=== PATIENT | female | born 1965 | race Caucasian/White ===

== ENCOUNTER 2016-12-11 16:40 | Emergency (ER) | payer OTHER ==
[2016-12-11 17:21] VITALS: BP 104/80
--- NOTE | 2016-12-11 19:51 | UC ---
Complaint Female HPI - HPI Summary HPI Summary: ONE WEEK OF URINARY FREQUENCY DISCOMFORT NO FEVER NO ABDOMINAL PAIN - History Of Current Complaint Chief Complaint: UCGU Stated Complaint: URINARY Time Seen by Provider: 12/11/16 18:25 Hx Obtained From: Patient Hx Last Menstrual Period: Mirana-hyperplasia Onset/Duration: Gradual Onset, Lasting Days, Still Present Timing: Lasting Days Severity Initially: Mild Severity Currently: Mild Pain Intensity: 2 Pain Scale Used: 0-10 Numeric Character: Dull Aggravating Factor(s): Urination Associated Signs And Symptoms: Negative: Fever, Back Pain, Vaginal Bleeding/ Discharge, Vaginal Discharge, Nausea, Vomiting(# Of Episodes =) - Risk Factors Ectopic Risk Factor: Negative Ovarian Torsion Risk Factor: Negative - Allergies/Home Medications Allergies/Adverse Reactions: Allergies Allergy/AdvReac Type Severity Reaction Status Date / Time Clavulanic Acid Allergy Itching Verified 12/11/16 17:16 [From Augmentin] Ibuprofen Allergy Hives Verified 12/11/16 17:16 Ketorolac Tromethamine Allergy Hives Verified 12/11/16 17:16 [From Toradol] NSAIDs Allergy Hives Verified 12/11/16 17:16 Oxycodone Allergy Itching Verified 12/11/16 17:16 Home Medications: Home Medications Carbidopa/Levodop 25/100 MG(*) [Sinemet 25/100 TAB(*)] 1 tab PO TID PRN [History Confirmed 12/11/16] PMH/Surg Hx/FS Hx/Imm Hx Previously Healthy: Yes Endocrine History Of: Reports: Thyroid Disease - thyroid nodule Denies: Diabetes Cardiovascular History Of: Denies: Cardiac Disorders, Hypertension Respiratory History Of: Denies: COPD, Asthma GI/ History Of: Denies: Ulcer - Surgical History Surgical History: None - Family History Known Family History: Positive: None - no history of asthma or respiratory illness., Other - metastatic bladder cancer- father Negative: Respiratory Disease - no history of asthma or respiratory illness. - Social History Occupation: Employed Full-time Lives: With Family Alcohol Use: Rare Substance Use Type: Prescribed Smoking Status (MU): Never Smoked Tobacco Have You Smoked in the Last Year: No Review of Systems Constitutional: Negative Skin: Negative Eyes: Negative ENT: Negative Respiratory: Negative Cardiovascular: Negative Gastrointestinal: Negative Genitourinary: Dysuria, Frequency, Urgency Motor: Negative Neurovascular: Negative Musculoskeletal: Negative Neurological: Negative Psychological: Negative All Other Systems Reviewed And Are Negative: Yes Physical Exam Triage Information Reviewed: Yes Appearance: Well-Appearing, No Pain Distress, Well-Nourished Vital Signs: Initial Vital Signs Pulse 74 12/11/16 17:12 Resp 18 12/11/16 17:12 BP 104/80 12/11/16 17:12 Pulse Ox 99 12/11/16 17:12 Vital Signs Reviewed: Yes Eye Exam: Normal ENT Exam: Normal ENT: Positive: Normal ENT inspection, Hearing grossly normal, Pharynx normal, TMs normal Dental Exam: Normal Neck exam: Normal Neck: Positive: Supple, Nontender Respiratory Exam: Normal Respiratory: Positive: Chest non-tender, Lungs clear, Normal breath sounds, No respiratory distress Cardiovascular Exam: Normal Cardiovascular: Positive: RRR, No Murmur, Pulses Normal Abdominal Exam: Normal Abdomen Description: Positive: Nontender, No Organomegaly, Soft, CVA Tenderness (R) Musculoskeletal Exam: Normal Musculoskeletal: Positive: Strength Intact, ROM Intact Neurological Exam: Normal Psychological Exam: Normal Skin Exam: Normal Complaint Female Dx - Differential Dx/Diagnosis Differential Diagnosis/HQI/PQRI: Renal Colic, Ureteral Stone, Urinary Tract Infection Provider Diagnoses: URINARY TRACT INFECTION Discharge - Discharge Plan Condition: Stable Disposition: HOME Prescriptions: Phenazopyridine TAB* [Pyridium 100 mg TAB*] 100 mg PO TID #15 tab Sulfamethox/Trimethoprim DS* [Bactrim DS 800/160 TAB*] 1 tab PO BID #10 tab Patient Education Materials: Urinary Tract Infection in Women (ED) Referrals: Ankit Philip MD [Primary Care Provider] -
== END 2016-12-11 18:41 | disposition home or self-care (01) ==
LOC: UCCORT 16:40
DX: N39.0 Urinary tract infection, site not specified (principal); E04.1 Nontoxic single thyroid nodule; Z88.6 Allergy status to analgesic agent; Z88.1 Allergy status to other antibiotic agents; Z88.5 Allergy status to narcotic agent
CPT/HCPCS: 81003; 87086; 99212; G0463

== ENCOUNTER 2017-05-25 08:31 | Emergency (ER) | payer OTHER ==
[2017-05-25 08:38] VITALS: BP 132/79
--- NOTE | 2017-05-25 08:43 | UC ---
Throat Pain/Nasal Jori HPI - HPI Summary HPI Summary: Pt presents with 10 days congestion, cough and sinus pressure. Pt states was feeling better, but coworker came to work sick and she got sick again. + chills and tactile fever. No chest pain. Pt taking sudafed and mucinex with temp improvement. + green sputum No antipyretic. PT states saw PCP on Sat - was told to be rechecked if not improving - pt states still feels "awful" so came for eval. Pt states feels getting worse so came for eval. Pt not immunocompromised Pt's medications reviewed this visit. - History of Current Complaint Chief Complaint: UCGeneralIllness Stated Complaint: HEAD CONGESTION Time Seen by Provider: 05/25/17 08:39 Hx Obtained From: Patient Hx Last Menstrual Period: iud ?: No Severity: Moderate Cough: Productive - yellow Associated Signs & Symptoms: Positive: Wheezing, Sinus Discomfort - Allergies/Home Medications Allergies/Adverse Reactions: Allergies Allergy/AdvReac Type Severity Reaction Status Date / Time Clavulanic Acid Allergy Itching Verified 05/25/17 08:39 [From Augmentin] Ibuprofen Allergy Hives Verified 05/25/17 08:39 Ketorolac Tromethamine Allergy Hives Verified 05/25/17 08:39 [From Toradol] NSAIDs Allergy Hives Verified 05/25/17 08:39 Oxycodone Allergy Itching Verified 05/25/17 08:39 PMH/Surg Hx/FS Hx/Imm Hx Previously Healthy: Yes - Surgical History Surgical History: None - Family History Known Family History: Positive: None - no history of asthma or respiratory illness., Other - metastatic bladder cancer- father Negative: Respiratory Disease - no history of asthma or respiratory illness. - Social History Occupation: Employed Full-time Lives: With Family Alcohol Use: Rare Substance Use Type: Prescribed Smoking Status (MU): Never Smoked Tobacco Have You Smoked in the Last Year: No Review of Systems Constitutional: Fever, Chills ENT: Nasal Discharge, Sinus Congestion, Sinus Pain/Tenderness Respiratory: Cough Cardiovascular: Negative Gastrointestinal: Negative All Other Systems Reviewed And Are Negative: Yes Physical Exam Triage Information Reviewed: Yes Appearance: Well-Appearing, Well-Nourished, Other: - congested, nasal Vital Signs: Initial Vital Signs Temp 98.4 F 05/25/17 08:33 Pulse 105 05/25/17 08:33 Resp 20 05/25/17 08:33 BP 132/79 05/25/17 08:33 Pulse Ox 100 05/25/17 08:33 Eye Exam: Normal Eyes: Positive: Conjunctiva Clear ENT Exam: Normal ENT: Positive: Normal ENT inspection, Hearing grossly normal, Pharynx normal Dental Exam: Normal Neck exam: Normal Neck: Positive: Supple, Nontender, No Lymphadenopathy Respiratory Exam: Normal Respiratory: Positive: Rhonchi, Wheezing - left side mid, lower lung zone with congestion, wheeze coarse cough + BS throughout Cardiovascular Exam: Normal Cardiovascular: Positive: RRR, No Murmur, Pulses Normal Abdominal Exam: Normal Abdomen Description: Positive: Nontender, No Organomegaly, Soft Bowel Sounds: Positive: Present Musculoskeletal Exam: Normal Neurological Exam: Normal Psychological Exam: Normal Skin Exam: Normal Diagnostics - Radiology No standard instances Radiology Interpretation Completed By: Radiologist - NAD Re-Evaluation - Re-Evaluation First Eval Change: Improved - pt improved with neb cough decreased cxr neg Will give z pack, MDI, resume flonase secretion precaution pt comfortable with plan Throat Pain/Nasal Course/Dx - Course Course Of Treatment: PT with progressive nasal congestion and cough. PT with left lung rhonci and wheeze. will check cxr. neb. reassess - Differential Dx/Diagnosis Provider Diagnoses: bronchitis. sinusitis Discharge - Discharge Plan Condition: Stable Disposition: HOME Prescriptions: Albuterol HFA INHALER* [Ventolin HFA Inhaler*] 1 puff INH Q4H PRN #1 mdi PRN Reason: Cough Azithromycin TAB* [Zithromax TAB (Z-IMER) 250 mg #6 tabs] 2 tab PO .TODAY, THEN 1 DAILY #1 imer Patient Education Materials: Sinusitis (ED), Acute Bronchitis (ED) Referrals: Mitchell Milton MD [Primary Care Provider] - Additional Instructions: - Stay well hydrated. Drink plenty of non-alcoholic, non-caffinated beverages - Take antibiotics exactly as prescribed until gone -Use your albuterol puffer - 2 puffs every 4 hours today, then every 4 hours as needed - Okay to use over the counter decongestant and cough medication - resume your flonase - eat regular, healthy meals -These infections are spread by oral secretions. Do not share eating or drinking utensils. Frequent hand washing is important. Clean items that may get your secretions on them such as cell phones, ipads, computer mouse, television remotes. Once you have been on your antibiotics for 2 days, change your pillow case and your toothbrush - contact your doctor or return with questions or concerns -Contact your doctor to arrange a follow-up appointment this week. Call your doctor, return here or go to the emergency department with any questions or concerns
[2017-05-25] MEDS ORDERED: Albuterol/Ipratropium NEB.SOL* Albuterol 2.5 MG/Ipratropium 0.5 MG 3 ML INH ONE (09:03)
--- NOTE | 2017-05-25 09:25 | RAD ---
HISTORY: Cough, left-sided rhonchi COMPARISONS: None VIEWS: 4: Frontal dual-energy and lateral views of the chest. FINDINGS: CARDIOMEDIASTINAL SILHOUETTE: The cardiomediastinal silhouette is normal. MARIELENA: The marielena are normal. PLEURA: The costophrenic angles are sharp. No pleural abnormalities are noted. LUNG PARENCHYMA: There is hyperinflation with flattening of the diaphragm and expansion of the AP diameter of the chest. ABDOMEN: The upper abdomen is clear. There is no subphrenic gas. BONES AND SOFT TISSUES: No bone or soft tissue abnormalities are noted. OTHER: None. IMPRESSION: HYPERINFLATION, CONSISTENT WITH COPD. NO ACTIVE CARDIOPULMONARY DISEASE.
== END 2017-05-25 10:00 | disposition home or self-care (01) ==
LOC: UCEAST 08:31
DX: J40 Bronchitis, not specified as acute or chronic (principal); Z88.6 Allergy status to analgesic agent; J32.9 Chronic sinusitis, unspecified
CPT/HCPCS: 71020; 99212; A9270-GY; G0463

== ENCOUNTER 2017-08-14 07:20 | Emergency (ER) | payer OTHER ==
[2017-08-14 07:34] VITALS: BP 131/78
--- NOTE | 2017-08-14 07:47 | UC ---
Complaint Female HPI - HPI Summary HPI Summary: Pt presents with thin, white vaginal discharge intermittent x1 month, but more persistent x 3 days. + vaginal discharge. Mild dysuria. + itching + odor Pt with h/o BV and states this feels similar. No fever, chills, rash. No cp, sob , abd. no diarrhea. Pt monomgamous relationship with pt's medications reviewed this visit - History Of Current Complaint Chief Complaint: UCGU Stated Complaint: PERSONAL Time Seen by Provider: 08/14/17 07:28 Hx Obtained From: Patient Hx Last Menstrual Period: iud ?: No Onset/Duration: Gradual Onset, Lasting Weeks Timing: Intermittent Severity Initially: Mild Severity Currently: Moderate Aggravating Factor(s): Urination Alleviating Factor(s): Nothing Associated Signs And Symptoms: Positive: Vaginal Discharge. Negative: Fever, Back Pain, Nausea, Vomiting(# Of Episodes =) - Allergies/Home Medications Allergies/Adverse Reactions: Allergies Allergy/AdvReac Type Severity Reaction Status Date / Time Clavulanic Acid Allergy Itching Verified 08/14/17 07:28 [From Augmentin] Ibuprofen Allergy Hives Verified 08/14/17 07:28 Ketorolac Tromethamine Allergy Hives Verified 08/14/17 07:28 [From Toradol] NSAIDs Allergy Hives Verified 08/14/17 07:28 Oxycodone Allergy Itching Verified 08/14/17 07:28 PMH/Surg Hx/FS Hx/Imm Hx Previously Healthy: Yes Neurological History: Other - chronic neck pain Other Neurological History: chronic neck pain - Surgical History Surgical History: Yes Surgery Procedure, Year, and Place: bladder - Family History Known Family History: Positive: None - no history of asthma or respiratory illness., Other - metastatic bladder cancer- father Negative: Respiratory Disease - no history of asthma or respiratory illness. - Social History Occupation: Employed Full-time Lives: With Family Alcohol Use: Rare Substance Use Type: Prescribed Smoking Status (MU): Never Smoked Tobacco Have You Smoked in the Last Year: No Review of Systems Constitutional: Negative Skin: Negative Genitourinary: Dysuria - mild, Vaginal/Penile Burning, Vaginal/Penile Itching, Vaginal/Penile Discharge Is Patient Immunocompromised?: No All Other Systems Reviewed And Are Negative: Yes Physical Exam Triage Information Reviewed: Yes Appearance: Well-Appearing, No Pain Distress, Well-Nourished Vital Signs: Initial Vital Signs Temp 98.3 F 08/14/17 07:30 Pulse 88 08/14/17 07:30 Resp 20 08/14/17 07:30 BP 131/78 08/14/17 07:30 Vital Signs Reviewed: Yes Eye Exam: Normal Eyes: Positive: Conjunctiva Clear ENT: Positive: Hearing grossly normal Dental Exam: Normal Neck exam: Normal Neck: Positive: Supple, Nontender, No Lymphadenopathy Respiratory Exam: Normal Respiratory: Positive: Chest non-tender, Lungs clear, No respiratory distress, No accessory muscle use Abdominal Exam: Normal Abdomen Description: Positive: Nontender, No Organomegaly, Soft, Other: - no external lesions pt with thin, white discharge in vault no discharge no blood visible mirena string Musculoskeletal Exam: Normal Neurological Exam: Normal Neurological: Positive: Alert Psychological Exam: Normal Skin Exam: Normal Complaint Female Dx - Course Course Of Treatment: Pt presents with intermittent vaginal discharge x 1 month, persistent xx 3 days. Pt with h/o BV and reports feels similar. No fever, chills. Exam with thin, white discharge. Will start flagyl - alcohol precautions discussed. affirm sample sent to lab. pt comfortable and in agreement with plan. [employer] [employer] in [place] - Differential Dx/Diagnosis Provider Diagnoses: vaginal discharge. bacterial vaginosis Discharge - Discharge Plan Condition: Stable Disposition: HOME Prescriptions: Metronidazole [Flagyl 500 MG TAB] 500 mg PO BID #14 tab Patient Education Materials: Bacterial Vaginosis (ED) Referrals: Mitchell Milton MD [Primary Care Provider] - Additional Instructions: - Take medication to treat your bacterial vaginosis as prescribed until gone. Do not drink alcohol for 48 hours before starting the medication and for 48 hours following the medication - your samples have been sent to the lab for additional testing. If you need a different treatment, you will receive a call for a care steam hammer operator - stay well hydrated. Drink plenty of non-caffinated, non-alcoholic beverages- - call your [facility] doctor or return with questions or concerns
== END 2017-08-14 08:12 | disposition home or self-care (01) ==
LOC: UCCORT 07:20
DX: N76.0 Acute vaginitis (principal); R30.0 Dysuria; Z88.6 Allergy status to analgesic agent; Z88.1 Allergy status to other antibiotic agents; Z88.5 Allergy status to narcotic agent
CPT/HCPCS: 81003; 87480; 87510; 99212; G0463

== ENCOUNTER 2017-11-07 16:03 | Emergency (ER) | payer OTHER ==
[2017-11-07 17:30] VITALS: BP 143/80
--- NOTE | 2017-11-07 17:45 | UC ---
Throat Pain/Nasal Jori HPI - HPI Summary HPI Summary: Patient to urgent care today with chief complaint of sinus pain and pressure. Patient reports having a sore throat and sinus pain for the last few days. Sore throat has resolved sinus pain continues and is getting worse patient has been using Afrin nasal spray for 2 days she knows that she can only use it for 3. Patient denies fever - History of Current Complaint Chief Complaint: UCGeneralIllness Stated Complaint: SINUS COMP Time Seen by Provider: 11/07/17 17:37 Hx Obtained From: Patient Hx Last Menstrual Period: MIRENA ?: No Onset/Duration: Gradual Onset, Lasting Days - 4, Still Present Severity: Mild Pain Intensity: 4 Pain Scale Used: 0-10 Numeric Cough: None Associated Signs & Symptoms: Positive: Negative - Allergies/Home Medications Allergies/Adverse Reactions: Allergies Allergy/AdvReac Type Severity Reaction Status Date / Time amoxicillin [From Augmentin] Allergy Itching Verified 11/07/17 17:17 clavulanic acid Allergy Itching Verified 11/07/17 17:17 [From Augmentin] ibuprofen Allergy Hives Verified 11/07/17 17:17 ketorolac Allergy Hives Verified 11/07/17 17:17 NSAIDS (Non-Steroidal Allergy Hives Verified 11/07/17 17:17 Anti-Inflamma oxycodone Allergy Itching Verified 11/07/17 17:17 penicillin V Allergy Itching Verified 11/07/17 17:18 Home Medications: Home Medications Oxymetazoline 0.05% NASAL SPR* [Afrin 0.05% NASAL SPRAY*] 1 spray NASAL Q12H 07/15 [History Confirmed 11/07/17] Pseudoephedrine TAB* [Sudafed TAB*] 60 mg PO Q6H PRN 11/07/17 [History Confirmed 11/07/17] guaiFENesin ER TAB [Mucinex*] 600 mg PO DAILY PRN 11/07/17 [History Confirmed ] PMH/Surg Hx/FS Hx/Imm Hx Previously Healthy: No - chronic neck pain Neurological History: Migraine - Surgical History Surgical History: Yes Surgery Procedure, Year, and Place: bladder - Family History Known Family History: Positive: None - no history of asthma or respiratory illness., Other - metastatic bladder cancer- father Negative: Respiratory Disease - no history of asthma or respiratory illness. - Social History Occupation: Employed Full-time Lives: With Family Alcohol Use: Rare Substance Use Type: Prescribed Smoking Status (MU): Never Smoked Tobacco Have You Smoked in the Last Year: No Review of Systems Constitutional: Negative Skin: Negative Eyes: Negative ENT: Negative, Nasal Discharge, Sinus Congestion, Sinus Pain/Tenderness Respiratory: Negative Cardiovascular: Negative Gastrointestinal: Negative Genitourinary: Negative Motor: Negative Neurovascular: Negative Musculoskeletal: Negative Neurological: Headache Psychological: Negative Is Patient Immunocompromised?: No All Other Systems Reviewed And Are Negative: Yes Physical Exam Triage Information Reviewed: Yes Appearance: Well-Appearing, No Pain Distress, Well-Nourished Vital Signs: Initial Vital Signs Temp 98.1 F 11/07/17 17:24 Pulse 91 11/07/17 17:24 Resp 18 11/07/17 17:24 BP 143/80 11/07/17 17:24 Pulse Ox 100 11/07/17 17:24 Vital Signs Reviewed: Yes Eye Exam: Normal Eyes: Positive: Conjunctiva Clear ENT Exam: Normal ENT: Positive: Normal ENT inspection, Hearing grossly normal, Pharynx normal, Nasal congestion, Nasal drainage, TMs normal, Sinus tenderness, Uvula midline. Negative: Tonsillar swelling, Tonsillar exudate, Trismus, Muffled voice, Hoarse voice, Dental tenderness Dental Exam: Normal Neck exam: Normal Neck: Positive: Supple, Nontender, No Lymphadenopathy Respiratory Exam: Normal Respiratory: Positive: Chest non-tender, Lungs clear, Normal breath sounds, No respiratory distress, No accessory muscle use Cardiovascular Exam: Normal Cardiovascular: Positive: RRR, No Murmur, Pulses Normal, Brisk Capillary Refill Musculoskeletal Exam: Normal Musculoskeletal: Positive: Strength Intact, ROM Intact, No Edema Neurological Exam: Normal Neurological: Positive: Alert, Muscle Tone Normal Psychological Exam: Normal Skin Exam: Normal Throat Pain/Nasal Course/Dx - Course Assessment/Plan: Patient encouraged to use Mucinex D increase fluids A use Afrin nasal spray for 1 more day continue use of Flonase. Patient understands the importance of not using antibiotics right away for sinus infections as these usually resolve on their own patient verbalizes understanding patient discharged home follow-up care with PCP at the blood pressure is elevated - Differential Dx/Diagnosis Provider Diagnoses: Elevated blood pressure without diagnosis of hypertension acute rhinosinusitis Discharge - Sign-Out/Discharge Documenting (check all that apply): Discharge - Discharge Plan Condition: Stable Disposition: HOME Prescriptions: Azithromycin TAB* [Zithromax TAB (Z-IMER) 250 mg #6 tabs] 2 tab PO .TODAY, THEN 1 DAILY #1 imer Patient Education Materials: Sinusitis (ED), Hypertension (ED) Forms: *Work Release Referrals: Mitchell Milton MD [Primary Care Provider] - 1 Week Additional Instructions: Yasmin as a general rule it is not advised to start antibiotics for sinus infections until you've had 10-14 days of symptoms. Most the time these are viral and will clear up on her own please increase fluids Tylenol for pain continue the Flonase nasal spray and you may use your Afrin nasal spray for 1 more day. Follow up with Dr. Estrella as needed. Also your blood pressure is a little bit high today it may be a result of taking Sudafed and using the Afrin for your stuffiness please get your blood pressure rechecked - Billing Disposition and Condition Condition: STABLE Disposition: HOME
== END 2017-11-07 17:56 | disposition home or self-care (01) ==
LOC: UCCORT 16:03
DX: J01.90 Acute sinusitis, unspecified (principal); R03.0 Elevated blood-pressure reading, without diagnosis of hypertension; Z88.0 Allergy status to penicillin; Z88.3 Allergy status to other anti-infective agents; Z88.5 Allergy status to narcotic agent; Z88.8 Allergy status to other drugs, medicaments and biological substances
CPT/HCPCS: 99212; G0463

== ENCOUNTER 2018-06-30 07:07 | Emergency (ER) | payer OTHER ==
[2018-06-30 07:26] VITALS: BP 136/76
--- NOTE | 2018-06-30 07:46 | ED ---
GI/ HPI - HPI Summary HPI Summary: 52 yr old female with over a week of vaginal yellow discharge, fishy odor. She states she has had BV twice in the past year and this is the third recurrence. She states she just missed her annual EMERGING SOLUTIONS EXECUTIVE exam due to her being in the hospital. The patient has taken flagyl two other times for the symptoms and it has gone away. She denies pain, fever, chills. - History of Current Complaint Chief Complaint: UCGU Time Seen by Provider: 06/30/18 07:35 Stated Complaint: PERSONAL Hx Last Menstrual Period: MIRENA Pain Intensity: 1 - Allergy/Home Medications Allergies/Adverse Reactions: Allergies Allergy/AdvReac Type Severity Reaction Status Date / Time amoxicillin [From Augmentin] Allergy Itching Verified 06/30/18 07:20 clavulanic acid Allergy Itching Verified 06/30/18 07:20 [From Augmentin] ibuprofen Allergy Hives Verified 06/30/18 07:20 ketorolac Allergy Hives Verified 06/30/18 07:20 NSAIDS (Non-Steroidal Allergy Hives Verified 06/30/18 07:20 Anti-Inflamma oxycodone Allergy Itching Verified 06/30/18 07:20 penicillin V Allergy Itching Verified 06/30/18 07:20 PMH/Surg Hx/FS Hx/Imm Hx Endocrine/Hematology History: Reports: Hx Thyroid Disease - thyroid nodule Denies: Hx Diabetes Cardiovascular History: Denies: Hx Hypertension Respiratory History: Denies: Hx Asthma, Hx Chronic Obstructive Pulmonary Disease (COPD) GI History: Denies: Hx Ulcer - Surgical History Surgery Procedure, Year, and Place: bladder Infectious Disease History: No Infectious Disease History: Denies: Hx Clostridium Difficile, Hx Hepatitis, Hx Human Immunodeficiency Virus (HIV), Hx of Known/Suspected MRSA, Hx Shingles, Hx Tuberculosis, Hx Known/ Suspected VRE, Hx Known/Suspected VRSA, History Other Infectious Disease, Traveled Outside the [place] in Last 30 Days - Family History Known Family History: Positive: None - no history of asthma or respiratory illness., Other - metastatic bladder cancer- father Negative: Respiratory Disease - no history of asthma or respiratory illness. - Social History Occupation: Employed Full-time Lives: With Family Alcohol Use: Rare Substance Use Type: Reports: Prescribed Smoking Status (MU): Never Smoked Tobacco Have You Smoked in the Last Year: No Review of Systems Constitutional: Negative Positive: discharge All Other Systems Reviewed And Are Negative: Yes Physical Exam Triage Information Reviewed: Yes Vital Signs On Initial Exam: Initial Vitals Temp Pulse Resp BP Pulse Ox 98.5 F 89 16 136/76 98 06/30/18 07:22 06/30/18 07:22 06/30/18 07:22 06/30/18 07:22 06/30/18 07:22 Vital Signs Reviewed: Yes Appearance: Positive: Well-Appearing, No Pain Distress Skin: Positive: Warm Head/Face: Positive: Normal Head/Face Inspection Eyes: Positive: EOMI ENT: Positive: Normal ENT inspection Neck: Positive: Nontender Respiratory/Lung Sounds: Positive: Clear to Auscultation, Breath Sounds Present Cardiovascular: Positive: RRR. Negative: Murmur Abdomen Description: Positive: Nontender Pelvic Exam: Positive: Other - the patient declined this exam, but she self swabbed. Neurological: Positive: Alert, Oriented to Person Place, Time, CN Intact II-III , Normal Gait Psychiatric: Positive: Normal Diagnostics - Vital Signs Vital Signs Temp Pulse Resp BP Pulse Ox 06/30/18 07:22 98.5 F 89 16 136/76 98 - Laboratory Lab Statement: Any lab studies that have been ordered have been reviewed, and results considered in the medical decision making process. GIGU Course/Dx - Course Course Of Treatment: 52 yr old with BV. Declined pelvic exam, but did agree to self swab herself. Will Rx for BV with Flagyl. She agrees to call her EMERGING SOLUTIONS EXECUTIVE to follow up with her. - Diagnoses Provider Diagnoses: Vaginal discharge Discharge - Sign-Out/Discharge Documenting (check all that apply): Patient Departure All imaging exams completed and their final reports reviewed: No Studies - Discharge Plan Condition: Good Disposition: HOME Prescriptions: metroNIDAZOLE [Flagyl 500 MG TAB] 500 mg PO TID #21 tab Referrals: Mitchell Milton MD [Primary Care Provider] - As Soon As Possible Elier BORDEN,Lupe Fields [Medical Doctor] - 2 Weeks Additional Instructions: Be sure to call your CASE MAKING MACHINE OPERATOR doctor for reassessment and your annual exam that is due. - Billing Disposition and Condition Condition: GOOD Disposition: Home
== END 2018-06-30 07:58 | disposition home or self-care (01) ==
LOC: UCCORT 07:07
DX: N89.8 Other specified noninflammatory disorders of vagina (principal); Z88.0 Allergy status to penicillin; Z88.8 Allergy status to other drugs, medicaments and biological substances; Z88.6 Allergy status to analgesic agent; Z88.5 Allergy status to narcotic agent
CPT/HCPCS: 87480; 87510; 87660; 99212; G0463

== ENCOUNTER 2019-05-30 10:06 | Emergency (ER) | payer OTHER ==
--- OUTSIDE RECORDS SUMMARY | 2019-05-30 10:11 | XMS REPORT | Continuity of Care Document ---
:1965 External Reference #:[id number] Author Name Dario Mcclain DO, MPH Address [address] [place] [address], [address] [place] [address] Care Team Providers Name Role Phone Lawson Case M.D. - Neurology Care Team Information Network Management Specialist [phone] Nacho Milton M.D. - Internal Care Team Information Network Management Specialist Medicine Problems Description No Information Available Social History Type Date Description Comments Sex Unknown Tobacco Use Start: Unknown Never Smoked Cigarettes ETOH Use Rarely consumes alcohol Tobacco Use Start: Unknown End: Unknown Patient is a former smoker Smoking Status Reviewed: 03/12/19 Patient is a former smoker Allergies, Adverse Reactions, Alerts Active Allergies Reaction Severity Comments Date Augmentin Urticaria 11/22/2014 Motrin Urticaria 11/22/2014 Toradol Urticaria 11/22/2014 Strawberries Urticaria 11/22/2014 Medications Active Medications SIG Qnty Indications Ordering Date Provider Hydromorphone HCL si/2-1 by 60tabs Dario Mcclain, 07/18/2015 4mg mouth every 6 to DO, MPH Tablets 8 hours as directed chronic pain patient Tylenol Extra Strength 2 by mouth prn Unknown for pain 500mg Tablets Imitrex prn Unknown 100mg Tablets Sudafed up to three times Unknown 30mg Tablets per day Flonase Allergy Relief bid Unknown 50mcg/Act Suspension Carbidopa-Levodopa Prn for RLS Unknown 10-100mg Tablets Sudafed 12 Hour as Needed Unknown 120mg Tablets ER 12HR Miralax si scoop in Unknown [id number] Powder 8oz of water x 3 nights as directed Lansoprazole 1 by mouth daily Unknown 15mg Capsules DR History Medications Medrol medication to be 21units Dario Mcclain DO, 02/05/2019 - 4mg TBPK taken as directed MPH 04/27/2019 Immunizations Description No Information Available Vital Signs Date Vital Result Comment 04/27/2019 3:50pm BP Systolic 122 mmHg BP Diastolic 74 mmHg Heart Rate 76 /min Respiratory Rate 20 /min Height 65 inches 5'5" Weight 192.00 lb Pain Level 6 Pain at this time. Pain Level With Medicine 5 on average with meds Pain Level Without Medicine 9 without meds BMI (Body Mass Index) 31.9 kg/m2 03/12/2019 4:00pm BP Systolic 128 mmHg BP Diastolic 84 mmHg Heart Rate 86 /min Respiratory Rate 20 /min Height 65 inches 5'5" Weight 193.00 lb Pain Level 5 Pain at this time. Pain Level With Medicine 4 on average with meds Pain Level Without Medicine 9 without meds BMI (Body Mass Index) 32.1 kg/m2 Results Description No Information Available Procedures Date Code Description Status 11/13/2018 35724 Omt 1-2 Body Regions Completed Medical Devices Description No Information Available Encounters Type Date Location Provider Dx Diagnosis Office Visit 03/12/2019 Main Office as Of Dario Mcclain DO G89.29 Other chronic pain 4:15p 08/29/13 SHANI M54.2 Cervicalgia M79.12 Myalgia of auxiliary muscles, head and neck Z79.891 intermediate (current) use of opiate analgesic Office Visit 02/05/2019 4:15p Main Office as Dario Mcclain G89.29 Other chronic Of 08/29/13 SHANI CARTWRIGHT pain M54.2 Cervicalgia M79.12 Myalgia of auxiliary muscles, head and neck Z79.891 long term care administrator (current) use of opiate analgesic Office Visit 12/25/2018 3:00p Main Office as Dario Mcclain G89.29 Other chronic Of 08/29/13 SHANI CARTWRIGHT pain M54.2 Cervicalgia M54.6 Pain in thoracic spine M79.12 Myalgia of auxiliary muscles, head and neck Z79.891 intermediate (current) use of opiate analgesic Office Visit 11/13/2018 4:00p Main Office as Dario Mcclain G89.29 Other chronic Of 08/29/13 DO, MPH pain M54.2 Cervicalgia M79.12 Myalgia of auxiliary muscles, head and neck M54.6 Pain in thoracic spine M99.02 Segmental and somatic dysfunction of thoracic region Z79.891 intermediate (current) use of opiate analgesic Assessments Date Code Description Provider 04/27/2019 G89.29 Other chronic pain Mcclain, Dario, DO, MPH 04/27/2019 M54.2 Cervicalgia Mcclain, Dario, DO, MPH 04/27/2019 M54.6 Pain in thoracic spine Mcclain, Dario, DO, MPH 04/27/2019 M79.12 Myalgia of auxiliary muscles, head and neck Mcclain, Dario, DO, MPH 04/27/2019 Z79.891 intermediate (current) use of opiate analgesic Mcclain, Dario , DO, MPH 03/12/2019 G89.29 Other chronic pain Mcclain, Dario, DO, MPH 03/12/2019 M54.2 Cervicalgia Mcclain, Dario, DO, MPH 03/12/2019 M79.12 Myalgia of auxiliary muscles, head and neck Mcclain, Dario, DO, MPH 03/12/2019 Z79.891 long term care administrator (current) use of opiate analgesic Mcclain, Dario , DO, MPH 02/05/2019 G89.29 Other chronic pain Mcclain, Dario, DO, MPH 02/05/2019 M54.2 Cervicalgia Mcclain, Dario, DO, MPH 02/05/2019 M79.12 Myalgia of auxiliary muscles, head and neck Mcclain, Dario, DO, MPH 02/05/2019 Z79.891 long term care administrator (current) use of opiate analgesic Mcclain, Dario , DO, MPH 12/25/2018 G89.29 Other chronic pain Mcclain, Dario, DO, MPH 12/25/2018 M54.2 Cervicalgia Mcclain, Dario, DO, MPH 12/25/2018 M54.6 Pain in thoracic spine Cmclain, Dario, DO, MPH 12/25/2018 M79.12 Myalgia of auxiliary muscles, head and neck Mcclain, Dario, DO, MPH 12/25/2018 Z79.891 intermediate (current) use of opiate analgesic Dario Mcclain DO MPH 11/13/2018 G89.29 Other chronic pain Dario Mcclain DO MPH 11/13/2018 M54.2 Cervicalgia Dario Mcclain DO MPH 11/13/2018 M79.12 Myalgia of auxiliary muscles, head and neck Dario Mcclain DO MPH 11/13/2018 M54.6 Pain in thoracic spine Dario Mcclain DO MPH 11/13/2018 M99.02 Segmental and somatic dysfunction of Dario Mcclain DO MPH thoracic region 11/13/2018 Z79.891 long term care administrator (current) use of opiate analgesic Dario Mcclain DO MPH Plan of Treatment 04/27/2019 - Dario Mcclain DO, MPHG89.29 Other chronic painComments:Chronic. Symptoms and complaints discussed and reviewed today. No significant changes in physical findings. Continue current medical pain management.M54.2 CervicalgiaComments:Chronic. Symptoms and complaints discussed and reviewed today. No significant changes in physical findings. Continue current medical pain management.M54.6 Pain in thoracic spineComments:Chronic.Symptoms and complaints discussed and reviewed today. No significant changes in physical findings. Continue current medical pain management.M79.12 Myalgia of auxiliary muscles, head and neckComments:Chronic. Symptoms and complaints discussed and reviewed today. No significant changes in physical findings. Continue current medical pain management.Z79.891 long term care administrator (current) use of opiate analgesicNew Labs:Urine Drug Screen, Ordered: 04/27/19Comments:Urine drug screen sample taken today to monitor opiate use and to monitor use of illicit substances.Will discuss results at next appointment.The following tests were ordered:6 AM, AMPH , ZOE, GIOVANA, BUP, CARIS, COCM, COT, ETG, FENT, MCSHSG, OPI, OXY, PCP, TAPEN, XTSY, ZOLP. A urine drug test (UDT) was ordered for this patient and collected on site today. Creatinine has been ordered as well for specimen validity, not for kidney function. Preliminary UDT results are not final and should not be used to determine patient care or plan of treatment. Initially a qualitative immunoassay screen will be done. Any inconsistent or positive findings will be further tested with a more comprehensive quantitative confirmation LCMS study. It is part of the treatment process of prescribing controlled substances and is considered standard of care.AllComments:Continue current medical pain management; injection therapy, osteopathic manipulation, PT / modalities, and consults as needed to manage chronic pain.Non - opioid pain management discussed and optionsdiscussed.Side effects discussed; anticipatory guidance given. Patient clearly understand and agree with all medical treatments and suggestions. All medicines prescribed are adequate and appropriate for this patient's complaint of pain, medical history, physical, and personal goals.Goals of Treatment are to provide adequate and appropriate multidisciplinary medical pain management to increase/ maintain patient's quality of life and functionality while maintaining satisfactory side effect profile andminimizing alf end-organ damage. Importance of regular nutrition throughout the day discussed.Activity as toleratedContinue with PCP Functional Status Description No Information Available Mental Status Description No Information Available Referrals Description No Information Available
--- OUTSIDE RECORDS SUMMARY | 2019-05-30 10:11 | XMS REPORT | Continuity of Care Document ---
:1965 External Reference #:[id number] Author Name Nishi Simpson MD (transmitted by agent of provider Anahi Kincaid) Address [address] [facility], [place] [address] Care Team Providers Name Role Phone Eugenio Dodson MD - Gastroenterology Care Team Information Coal Tower Operator Nishi Simpson MD - Internal Medicine Care Team Information Coal Tower Operator [phone] Problems Active Problems Provider Date Neck pain Jesus Mei M.D. Onset: 09/08/2014 Low back pain Jesus Mei M.D. Onset: 09/08/2014 Migraine Mitchell Milton M.D.,FACP Onset: 05/23/2017 Note: cervicogenic Chronic recurrent sinusitis Mitchell Milton M.D.,FACP Onset: 05/23/2017 Fibromyalgia Mitchell Milton M.D.,FACP Onset: 05/23/2017 Thyroid nodule Mitchell Milton M.D.,FACP Onset: 05/23/2017 Note: biopsy NEG Multinodular goiter Mitchell Milton M.D.,FACP Onset: 06/04/2018 Social History Type Date Description Comments Sex Unknown Tobacco Use Reviewed: 05/23/17 Never Smoked Cigarettes Smoking Status Reviewed: 04/30/19 Never Smoked Cigarettes Tobacco Use Start: Unknown Never Smoked Cigars Tobacco Use Start: Unknown Never Smoked A Pipe Smokeless Tobacco Never Used Smokeless Tobacco ETOH Use 05/23/2017 Rarely consumes alcohol Recreational Drug Use Denies Drug Use Allergies, Adverse Reactions, Alerts Active Allergies Reaction Severity Comments Date Augmentin Urticaria 09/08/2014 Ibuprofen Urticaria 09/08/2014 Toradol Urticaria 09/08/2014 NSAIDs Urticaria 09/08/2014 Oxycodone Urticaria Moderate 05/23/2017 Penicillin Urticaria Moderate 05/13/2018 Medications Active Medications SIG Qnty Indications Ordering Date Provider Sinemet take 1 tab by 60talina Simpson MD 03/13/2019 25-100mg Tablets mouth twice a day as needed restless legs Sumatriptan Succinate 1 tab by mouth 9tabs Daysi Burton MD 01/30/2019 100mg daily as needed Tablets Methylprednisolone take as 1pack Nishi Simpson MD 05/28/2017 4mg TBPK directed as needed Fluticasone Propionate 2 puffs each 1month Mike Estrella, 07/24/2016 nostril daily M.D. 50mcg/Act Suspension Pepcid Complete 1 po prn Unknown [id number] Chewtabs Dilaudid 1 po tid (But Unknown 4mg Tablets Only Taking bid) Sudafed 2 tab by mouth Unknown 30mg Tablets every 6 hours as needed Mucinex 1 tab q 6 hours Unknown 600mg Tablets ER 12HR prn Miralax 1 capful daily Unknown Powder Ventolin HFA as needed Unknown 108(90Base) mcg/Act Aerosol [facility] Lansoprazole one each in the Unknown 15mg Capsules morning DR History Medications Metronidazole 1 tab twice a 14tabs N76.0 Johnathon Saldivar, 04/09/2019 - 500mg day 04/19/2019 Tablets Carbidopa-Levodopa 1 tab po bid 60tabs Nishi Simpson MD 03/16/2019 - prn restless 04/19/2019 25-100mg Tablets legs Immunizations Description No Information Available Vital Signs Date Vital Result Comment 04/30/2019 4:00pm Height 65 inches 5'5" Weight 194.00 lb Heart Rate 68 /min BP Systolic Sitting 131 mmHg BP Diastolic Sitting 77 mmHg Body Temperature 98.2 F O2 % BldC Oximetry 96 % BMI (Body Mass Index) 32.3 kg/m2 04/20/2019 1:15pm Height 65 inches 5'5" Weight 190.00 lb Heart Rate 99 /min BP Systolic Sitting 120 mmHg BP Diastolic Sitting 72 mmHg Pain Level 0 O2 % BldC Oximetry 98 % BMI (Body Mass Index) 31.6 kg/m2 Results Description No Information Available Procedures Date Code Description Status 01/16/2018 96549462 Colonoscopy Completed 06/21/2017 93760704 Mammogram Completed Medical Devices Description No Information Available Encounters Type Date Location Provider Dx Diagnosis Office Visit 04/20/2019 [facility] Est[facility], E04.2 Nontoxic 1:30p [facility] multinodular goiter [place] Office Visit 04/09/2019 [facility] Janis Moore, N76.0 Acute vaginitis 5:03p Walk-in at [facility] Drugs Assessments Date Code Description Provider 04/30/2019 M54.2 Cervicalgia Nishi Simpson MD 04/30/2019 G25.81 Restless legs syndrome Nishi Simpson MD 04/30/2019 G43.009 Migraine without aura, not intractable, Nishi Simpson MD without status migrainosus 04/30/2019 K21.9 Gastro-esophageal reflux disease without Nishi Simpson MD esophagitis 04/30/2019 G89.4 Chronic pain syndrome Nishi Simpson MD 04/20/2019 E04.2 Nontoxic multinodular goiter Mike Estrella M.D. 04/09/2019 N76.0 Acute vaginitis JAMES [place] Plan of Treatment 04/30/2019 - Nishi Simpson MDM54.2 CervicalgiaComments:Use medrol dose pack as nzcdmlK32.81 Restless legs syndromeNew Labs:Comp Metabolic Panel, Ordered: 04/30Comments:Continue sinemet as kuryolJ17.009 Migraine without aura, not intractable, without status migrainosusComments:Continue [id number] Gastro -esophageal reflux disease without esophagitisComments:Try to skip days off [id number] Chronic pain syndromeComments:Continue to f/u pain clinic Functional Status Description No Information Available Mental Status Description No Information Available Referrals Description No Information Available
[2019-05-30 10:19] VITALS: BP 121/78
--- NOTE | 2019-05-30 10:32 | UC ---
Throat Pain/Nasal Jori HPI - HPI Summary HPI Summary: 53-year-old woman comes in with a chief complaint of sore throat for 2 weeks. She had a negative strep test 2 days ago. Hurts more when she swallows. Now she feels like her throat is closing. Minimal rhinorrhea. No shortness of breath. She is able to eat and drink. She is mildly fatigued but not excessively. - History of Current Complaint Chief Complaint: UCGeneralIllness Stated Complaint: SORE THROAT Time Seen by Provider: 05/30/19 10:21 Hx Last Menstrual Period: No Pain Intensity: 2 - Allergies/Home Medications Allergies/Adverse Reactions: Allergies Allergy/AdvReac Type Severity Reaction Status Date / Time amoxicillin [From Augmentin] Allergy Itching Verified 05/30/19 10:11 clavulanic acid Allergy Itching Verified 05/30/19 10:11 [From Augmentin] clindamycin [From Cleocin] Allergy Itching Verified 05/30/19 10:11 ibuprofen Allergy Hives Verified 05/30/19 10:11 ketorolac Allergy Hives Verified 05/30/19 10:11 NSAIDS (Non-Steroidal Allergy Hives Verified 05/30/19 10:11 Anti-Inflamma oxycodone Allergy Itching Verified 05/30/19 10:11 penicillin V Allergy Itching Verified 05/30/19 10:11 Home Medications: Home Medications Lansoprazole [Prevacid] 15 mg PO DAILY 05/30/19 [History Confirmed 05/30/19] PMH/Surg Hx/FS Hx/Imm Hx Previously Healthy: Yes - FIBROMYALGIA Endocrine History: Thyroid Disease - THYROID NODULE GI/ History: Gastroesophageal Reflux - Surgical History Surgical History: Yes Surgery Procedure, Year, and Place: bladder as a teen - Family History Known Family History: Positive: None - no history of asthma or respiratory illness., Other - metastatic bladder cancer- father Negative: Respiratory Disease - no history of asthma or respiratory illness. - Social History Alcohol Use: Rare Substance Use Type: None Smoking Status (MU): Never Smoked Tobacco Have You Smoked in the Last Year: No Review of Systems All Other Systems Reviewed And Are Negative: Yes Constitutional: Positive: Negative Skin: Positive: Negative Eyes: Positive: Negative ENT: Positive: Sore Throat, Nasal Discharge Respiratory: Positive: Negative Cardiovascular: Positive: Negative Gastrointestinal: Positive: Negative Motor: Positive: Negative Neurovascular: Positive: Negative Musculoskeletal: Positive: Negative Neurological: Positive: Negative Psychological: Positive: Negative Is Patient Immunocompromised?: No Physical Exam Triage Information Reviewed: Yes Appearance: Well-Appearing, No Pain Distress, Well-Nourished Vital Signs: Initial Vital Signs Temp 98.8 F 05/30/19 10:14 Pulse 82 05/30/19 10:14 Resp 18 05/30/19 10:14 BP 121/78 05/30/19 10:14 Pulse Ox 99 05/30/19 10:14 Vital Signs Reviewed: Yes Eye Exam: Normal Eyes: Positive: Conjunctiva Clear ENT: Positive: Pharyngeal erythema, Nasal congestion, Nasal drainage, TMs normal , Uvula midline, Other - No peritonsillar abscess apparent on examination. Voice is normal. Patient does have a right neck thyroid nodule prominence.. Negative: Tonsillar swelling, Tonsillar exudate, Muffled voice, Hoarse voice Neck: Positive: Supple Respiratory: Positive: Lungs clear, Normal breath sounds, No respiratory distress Cardiovascular: Positive: RRR Musculoskeletal: Positive: Strength Intact, ROM Intact Neurological: Positive: Alert Psychological: Positive: Age Appropriate Behavior Skin Exam: Normal Throat Pain/Nasal Course/Dx - Course Course Of Treatment: >10 DAYS OF SX THEREFORE, RX ABX. We will also treat with steroids to help decrease swelling. We discussed that if she did not improve she should follow- up with ENT. If she worsens with any difficulty swallowing or breathing she should go the emergency department. - Differential Dx/Diagnosis Provider Diagnosis: Pharyngitis Discharge ED - Sign-Out/Discharge Documenting (check all that apply): Patient Departure All imaging exams completed and their final reports reviewed: No Studies - Discharge Plan Condition: Stable Disposition: HOME Prescriptions: Cephalexin CAP* [Keflex CAP*] 500 mg PO TID #30 cap methylPREDNISolone [Medrol Dosepak 4 MG*] 0 mg PO .SEE IMER INSTRUCTION #1 imer Patient Education Materials: Pharyngitis (ED) Referrals: Nishi Simpson MD [Primary Care Provider] - Mike Estrella MD [Medical Doctor] - Additional Instructions: FOLLOW UP WITH ENT IF NOT COMPLETELY IMPROVED. GO TO THE EMERGENCY DEPARTMENT IF WORSE; DIFFICULTY BREATHING OR SWALLOWING, YOU FEEL ILL OR ANY QUESTIONS OR CONCERNS. - Billing Disposition and Condition Condition: STABLE Disposition: Home
== END 2019-05-30 10:37 | disposition home or self-care (01) ==
LOC: UCEAST 10:06
DX: J02.9 Acute pharyngitis, unspecified (principal); M79.7 Fibromyalgia; K21.9 Gastro-esophageal reflux disease without esophagitis; Z88.0 Allergy status to penicillin; Z88.1 Allergy status to other antibiotic agents; Z88.5 Allergy status to narcotic agent; Z88.6 Allergy status to analgesic agent; Z79.899 Other long term (current) drug therapy
CPT/HCPCS: 99212; G0463